=== PATIENT | female | born 1955 | race Caucasian/White ===

== ENCOUNTER → 2023-06-30 06:19 | Day surgery (SDC) | payer OTHER, SELFPAY | LOC: GI 06:19 | PROVIDERS: ATTENDING PHYSICIAN Specialist | DX: Z12.11 Encounter for screening for malignant neoplasm of colon (principal); D12.3 Benign neoplasm of transverse colon; Z86.010 Personal history of colon polyps | CPT/HCPCS: 45385; 88305 ==

== ENCOUNTER → 2024-03-21 13:06 | Outpatient (REF) | payer OTHER, SELFPAY | LOC: HWEVLT 13:06 | PROVIDERS: ATTENDING PHYSICIAN Radiology Vascular & Interventional Radiology | DX: I83.893 Varicose veins of bilateral lower extremities with other complications (principal) | CPT/HCPCS: 93970 ==

== ENCOUNTER → 2024-07-05 09:38 | Outpatient (REF) | payer OTHER, SELFPAY | LOC: HWWDC 09:38 | PROVIDERS: ATTENDING PHYSICIAN Nurse Practitioner Family | DX: Z12.31 Encounter for screening mammogram for malignant neoplasm of breast (principal) | CPT/HCPCS: 77063; 77067 ==